=== PATIENT | female | born 1990 | race Caucasian/White ===

== ENCOUNTER → 2021-07-18 14:42 | Outpatient (CLI) | payer OTHER, SELFPAY ==
--- NOTE | 2021-07-18 | DI.US.S_ITS ---
PROCEDURE: US PELVIC COMPLETE INDICATIONS: RIGHT PELVIC PAIN TECHNIQUE: Real-time scanning was performed of the pelvic organs, with image documentation. Additional endovaginal scanning was necessary due to incomplete visualization of the adnexal and endometrial structures by transabdominal scanning. COMPARISON: None. FINDINGS: Uterus: Uterus is anteverted and normal in size at 8.0 x 3.6 x 5.2 cm. The myometrium is homogeneous. The endometrium measures 4 mm combined thickness. No intrauterine mass lesions identified. Ovaries: The right ovary measures 6.9 x 5.1 x 6.7 cm. There is a 6.5 x 5.1 x 6.1 cm right-sided simple ovarian cyst. The left ovary is not visualized on this exam. No adnexal masses are seen. Other: No pathologic free abdominal or pelvic fluid. IMPRESSION: 1. Normal sonographic appearance of the uterus. 2. There is a simple appearing 6.5 cm right ovarian cyst. Right ovary is otherwise unremarkable. Recommend follow-up pelvic ultrasound in 12 months to document stability versus resolution. 3. Left ovary not visualized on this examination. We strive to produce accurate, complete, and clear reports of imaging services. To assist us in improving patient care, this report was composed using standard report templates and voice recognition software. Therefore, it may contain abnormal punctuation, insertions and/or omissions. Occasional wrong-word or sound-alike substitutions may occur. Though we review the report and make efforts to correct it, we do recommend that the report be read carefully in proper context to recognize any text inaccuracies. Dictated by: Cortes Duffy M.D. on 07/18/2021 at 16:56 Approved by: Cortes Duffy M.D. on 07/18/2021 at 16:59
== END ==
PROVIDERS: Referring Provider Internal Medicine; Visit Provider Internal Medicine
DX: N83.291 Other ovarian cyst, right side (principal); R10.31 Right lower quadrant pain
CPT/HCPCS: 76830; 76856

== ENCOUNTER 2022-02-22 14:53 | Emergency (ER) | payer OTHER, SELFPAY ==
[2022-02-22 14:57] VITALS: BP 117/69; PULSE 81; RESP 14; TEMP 36.5; O2SAT 100; BMI 24.3
--- NOTE | 2022-02-22 15:17 | DI.CT.S_ITS ---
PROCEDURE: CT HEAD/BRAIN WO CON INDICATIONS: intractable headache, referred by opthamology TECHNIQUE: Noncontrast 4.5 mm thick angled axial sections acquired from the foramen magnum to the vertex, with coronal and sagittal reformats. For radiation dose reduction, the following was used: automated exposure control, adjustment of mA and/or kV according to patient size. COMPARISON: None. FINDINGS: Image quality: Excellent. CSF spaces: Basal cisterns are patent. No extra-axial fluid collections. Ventricles are normal in size and shape. Brain: No midline shift. No intracranial masses or hemorrhage. Nolen-white matter interface is normal. Skull and face: Calvarium and visualized facial bones are intact, without suspicious lesions. Sinuses: Visualized sinuses and mastoids are clear. IMPRESSION: 1. No acute intracranial process. Dictated by: Jocelin Hardy M.D. on 02/22/2022 at 15:56 Approved by: Jocelin Hardy M.D. on 02/22/2022 at 15:56
--- NOTE | 2022-02-22 15:20 | ED.HA ---
HPI - Headache <VIRGIE Arnold - Last Filed: 02/22/22 19:35> General Chief Complaint: Headache Stated Complaint: Headache/Dizziness, Sent from [facility] Time Seen by Provider: 02/22/22 15:00 Mode of arrival: Ambulatory History of Present Illness HPI Narrative: This is a 31-year-old female with history of headaches and complicated vision, she is on ovarian suppression hormone therapy for ovarian cysts and presents to the emergency department with her father after she was at the [facility] with Dr. Bhandari with complaint of dizziness and headache for the last two weeks. She was examined by Dr. Bhandari and there were not any acutely abnormal findings and she had normal pressures. Her right pupil is larger but this is normal at baseline. She is often ask if her eyes were dilated due to her enlarged pupils. Patient denies any recent trauma, denies any weakness, incontinence, sensation changes, fever, shortness of breath, or chest pain.. She says that she had an allergic reaction just prior to this headache and dizziness starting but otherwise has not had any new changes. Patient complains of blurred vision, right shoulder and neck muscle strain and tenderness to palpation. She endorses nausea without vomiting, denies any sore throat, runny nose, cough, recent illness. Related Data Home Medications Medication Instructions Recorded Confirmed cetirizine 10 mg capsule (Zyrtec) 10 mg PO DAILY PRN 01/28/22 01/28/22 Previous Rx's Medication Instructions Recorded levonorgestrel 0.15 mg-ethinyl 1 tab PO DAILY #112 tabs 01/28/22 estradiol 0.03 mg tablet (Nella (28)) ketorolac 10 mg tablet 10 mg PO Q8H PRN pain #20 tabs 02/22/22 methocarbamol 500 mg tablet 250 - 500 mg PO BID PRN muscle 02/22/22 strain #14 tabs ondansetron 4 mg disintegrating 4 mg PO Q8H PRN nausea and 02/22/22 tablet vomiting #14 tabs Allergies Allergy/AdvReac Type Severity Reaction Status Date / Time Sulfa (Sulfonamide Allergy Verified 02/22/22 14:57 Antibiotics) Review of Systems <VIRGIE Arnold - Last Filed: 02/22/22 19:35> Review of Systems Narrative: General: denies fever, chills Head/Neck: Endorses having a headache, blurred vision, denies any neck pain but endorses right shoulder muscular pain which goes up into her neck on the right. Eyes: Endorses blurred vision, denies any eye pain, states her pupils are dilated at baseline but she does not have any unilateral vision changes Cardio: denies chest pain, palpitations Respiratory: denies shortness of breath, cough GI: denies abdominal pain, nausea, vomiting, or diarrhea : denies dysuria, hematuria or flank pain MSK: denies new joint pain, muscle weakness or swelling Skin: denies rash, itching or wound Neuro: denies numbness, tingling, dizziness Patient History <VIRGIE Arnold - Last Filed: 02/22/22 19:35> Social History Smoking Status: Unknown if ever smoked Smoking Status: Unknown if ever smoked alcohol intake frequency: holidays/special occasions only Substance Use Type: does not use Exam <VIRGIE Arnold - Last Filed: 02/22/22 19:35> Narrative Exam Narrative: Independently reviewed vitals signs and nursing notes. General: cooperative, comfortable, in no acute distress, well groomed, anxious and complaining pain and blurred vision with dizziness. Head: atraumatic, symmetrical facial expressions Neck: supple with full range of motion Eyes: equal round and reactive, pupils are approximately a six, right is slightly greater than left but react and accommodate equally, EOMI, conjunctiva normal without nystagmus, Nose: nares patent, no rhinorrhea Mouth/Throat: moist mucus membranes Cardiovascular: regular rate and rhythm, no peripheral edema, warm extremities Respiratory: normal effort, able to speak in complete sentences without tachypnea MSK: moves all extremities, neurovascularly intact, no weakness, normal tone Skin: brisk capillary refill, no rash, no erythema Neuro: normal speech and cognition, A&O x3 Psych: mental status is grossly normal, congruent mood, normal affect, pleasant and cooperative, alert and oriented x3, interactive appropriately, Initial Vital Signs Initial Vital Signs: Vital Signs Temperature 97.7 F 02/22/22 14:57 Pulse Rate 81 02/22/22 14:57 Respiratory Rate 14 02/22/22 14:57 Blood Pressure 117/69 02/22/22 14:57 Pulse Oximetry 100 02/22/22 14:57 Oxygen Delivery Method 02/22/22 14:57 <Sarah Mccauley DO - Last Filed: 02/23/22 07:51> Initial Vital Signs Initial Vital Signs: Vital Signs Temperature 97.7 F 02/22/22 14:57 Pulse Rate 81 02/22/22 14:57 Respiratory Rate 14 02/22/22 14:57 Blood Pressure 117/69 02/22/22 14:57 Pulse Oximetry 100 02/22/22 14:57 Oxygen Delivery Method 02/22/22 14:57 Course <VIRGIE Arnold - Last Filed: 02/22/22 19:35> Orders Ordered: Discontinued Medications Acetaminophen (Acetaminophen 325 Mg Tablet) 975 mg PO NOW ONE Stop: 02/22/22 15:18 Last Admin: 02/22/22 15:40 Dose: 975 mg Documented By: DIAN Dexamethasone (Dexamethasone 10 Mg/Ml Vial) 10 mg IV NOW ONE Stop: 02/22/22 15:18 Last Admin: 02/22/22 15:41 Dose: 10 mg Documented By: DIAN Diphenhydramine HCl (Diphenhydramine 50 Mg/Ml Vial) 25 mg IV NOW ONE Stop: 02/22/22 15:18 Last Admin: 02/22/22 15:41 Dose: 25 mg Documented By: DIAN Sodium Chloride (Normal Saline 0.9%) 1,000 mls @ 1,000 mls/hr IV BOLUS ONE Stop: 02/22/22 16:16 Last Infusion: 02/22/22 17:09 Dose: 0 mls/hr Documented By: Admin: 02/22/22 15:40 Dose: 1,000 mls/hr Documented By: DIAN Ketorolac Tromethamine (Ketorolac 30 Mg/Ml Vial) 15 mg IV NOW ONE Stop: 02/22/22 15:18 Last Admin: 02/22/22 15:37 Dose: 15 mg Documented By: DIAN Methocarbamol (Methocarbamol 500 Mg Tablet) 250 mg PO NOW ONE Stop: 02/22/22 15:22 Last Admin: 02/22/22 16:32 Dose: Not Given Documented By: DIAN Ondansetron HCl (Ondansetron 4 Mg/2 Ml Inj) 4 mg IV NOW ONE Stop: 02/22/22 15:18 Last Admin: 02/22/22 15:37 Dose: 4 mg Documented By: DIAN Reevaluation(s) Reevaluation #1: Patient was given migraine cocktail including IV fluids with Tylenol, dexamethasone, Benadryl, Toradol, and Zofran, gave her half of a methocarbamol tab for right-sided trapezius strain with thought that this is contributing to her headache. Reevaluation #2: On recheck after her medications 30 minutes later, patient reports that her pain has come down to a 6/10 Reevaluation #3: After 1 hour, patient reports that her pain is now a 2/10, she denies any blurred vision, she states that she feels much better and would like to go home now. Vital Signs Vital signs: Vital Signs - 8 hr 02/22/22 14:57 02/22/22 17:11 Temperature 97.7 F Pulse Rate 81 86 Respiratory Rate 14 12 Blood Pressure 117/69 117/68 Pulse Oximetry 100 100 Oxygen Delivery Method Room Air Room Air <Sarah Mccauley DO - Last Filed: 02/23/22 07:51> Orders Ordered: Discontinued Medications Acetaminophen (Acetaminophen 325 Mg Tablet) 975 mg PO NOW ONE Stop: 02/22/22 15:18 Last Admin: 02/22/22 15:40 Dose: 975 mg Documented By: DIAN Dexamethasone (Dexamethasone 10 Mg/Ml Vial) 10 mg IV NOW ONE Stop: 02/22/22 15:18 Last Admin: 02/22/22 15:41 Dose: 10 mg Documented By: DIAN Diphenhydramine HCl (Diphenhydramine 50 Mg/Ml Vial) 25 mg IV NOW ONE Stop: 02/22/22 15:18 Last Admin: 02/22/22 15:41 Dose: 25 mg Documented By: DIAN Sodium Chloride (Normal Saline 0.9%) 1,000 mls @ 1,000 mls/hr IV BOLUS ONE Stop: 02/22/22 16:16 Last Infusion: 02/22/22 17:09 Dose: 0 mls/hr Documented By: Admin: 02/22/22 15:40 Dose: 1,000 mls/hr Documented By: DIAN Ketorolac Tromethamine (Ketorolac 30 Mg/Ml Vial) 15 mg IV NOW ONE Stop: 02/22/22 15:18 Last Admin: 02/22/22 15:37 Dose: 15 mg Documented By: DIAN Methocarbamol (Methocarbamol 500 Mg Tablet) 250 mg PO NOW ONE Stop: 02/22/22 15:22 Last Admin: 02/22/22 16:32 Dose: Not Given Documented By: DIAN Ondansetron HCl (Ondansetron 4 Mg/2 Ml Inj) 4 mg IV NOW ONE Stop: 02/22/22 15:18 Last Admin: 02/22/22 15:37 Dose: 4 mg Documented By: DIAN Vital Signs Vital signs: Vital Signs - 8 hr 02/22/22 14:57 02/22/22 17:11 Temperature 97.7 F Pulse Rate 81 86 Respiratory Rate 14 12 Blood Pressure 117/69 117/68 Pulse Oximetry 100 100 Oxygen Delivery Method Room Air Room Air MDM - Headache <VIRGIE Arnold - Last Filed: 02/22/22 19:35> Lab Data Result diagrams: 02/22/22 15:49 02/22/22 15:49 Labs: Lab Results 02/22/22 02/22/22 02/22/22 Range/Units 15:49 15:49 15:49 WBC 6.0 (4.5-11.0) X10^3/uL RBC 4.93 (4.0-5.2) X10^6/uL Hgb 15.2 (12.0-16.0) g/dL Hct 44.5 (36-46) % MCV 90.2 (80-100) fL MCH 30.7 (26-34) PG MCHC 34.1 (30-36) % RDW 12.5 (11.6-14.8) % Plt Count 233 (150-400) X10^3/uL Neut % (Auto) 62.8 (50-75) % Lymph % (Auto) 29.8 (25-40) % [place] % (Auto) 5.1 (3-14) % Eos % (Auto) 1.5 L (2-4) % Baso % (Auto) 0.8 (0-2) % Neut # (Auto) 3700 (9627-3542) /uL Lymph # (Auto) 1800 (1854-1484) /uL [place] # (Auto) 300 (0-900) /uL Eos # (Auto) 100 (0-450) /uL Baso # (Auto) 0 (0-100) /uL PT 10.9 (10.1-12.7) SECONDS INR 1.0 (0.9-1.3) Sodium 138 (137-145) mmol/L Potassium TNP Chloride 108 H (98-107) mmol/L Carbon Dioxide 21 L (22-32) mmol/L BUN 7 (7-17) mg/dL Creatinine 0.67 (0.52-1.04) mg/dL Estimated GFR > 60 (>60) mL/min BUN/Creatinine Ratio 10.4 (6-22) Glucose 92 (70-100) mg/dL Calcium 9.0 (8.4-10.2) mg/dL Total Bilirubin 1.3 (0.2-1.3) mg/dL AST TNP ALT 18 (<35) IU/L Alkaline Phosphatase 56 (38-126) U/L Total Protein TNP Albumin 4.9 (3.5-5.0) g/dL Globulin TNP Albumin/Globulin Ratio TNP Procalcitonin < 0.03 (<0.5) ng/mL HCG, Quant 02/22/22 Range/Units 15:49 WBC (4.5-11.0) X10^3/uL RBC (4.0-5.2) X10^6/uL Hgb (12.0-16.0) g/dL Hct (36-46) % MCV (80-100) fL MCH (26-34) PG MCHC (30-36) % RDW (11.6-14.8) % Plt Count (150-400) X10^3/uL Neut % (Auto) (50-75) % Lymph % (Auto) (25-40) % [place] % (Auto) (3-14) % Eos % (Auto) (2-4) % Baso % (Auto) (0-2) % Neut # (Auto) (4708-7111) /uL Lymph # (Auto) (2007-3720) /uL [place] # (Auto) (0-900) /uL Eos # (Auto) (0-450) /uL Baso # (Auto) (0-100) /uL PT (10.1-12.7) SECONDS INR (0.9-1.3) Sodium (137-145) mmol/L Potassium Chloride (98-107) mmol/L Carbon Dioxide (22-32) mmol/L BUN (7-17) mg/dL Creatinine (0.52-1.04) mg/dL Estimated GFR (>60) mL/min BUN/Creatinine Ratio (6-22) Glucose (70-100) mg/dL Calcium (8.4-10.2) mg/dL Total Bilirubin (0.2-1.3) mg/dL AST ALT (<35) IU/L Alkaline Phosphatase (38-126) U/L Total Protein Albumin (3.5-5.0) g/dL Globulin Albumin/Globulin Ratio Procalcitonin (<0.5) ng/mL HCG, Quant TNP Imaging Data CT scan - head: Radiologist's Impression: PROCEDURE:? CT HEAD/BRAIN WO CON ? INDICATIONS:? intractable headache, referred by opthamology ? TECHNIQUE:? Noncontrast 4.5 mm thick angled axial sections acquired from the foramen magnum to the vertex, with coronal and sagittal reformats.? For radiation dose reduction, the following was used:? automated exposure control, adjustment of mA and/or kV according to patient size.? ? COMPARISON:? None. ? FINDINGS:? Image quality:? Excellent.? ? CSF spaces:? Basal cisterns are patent.? No extra-axial fluid collections.? Ventricles are normal in size and shape.? ? Brain:? No midline shift.? No intracranial masses or hemorrhage.? Nolen-white matter interface is normal.? ? Skull and face:? Calvarium and visualized facial bones are intact, without suspicious lesions.? ? Sinuses:? Visualized sinuses and mastoids are clear.? ? IMPRESSION:? ? 1. No acute intracranial process. ? ? Dictated by: Jocelin Hardy M.D. on 02/22/2022 at 15:56 ? ? Approved by: Jocelin Hardy M.D. on 02/22/2022 at 15:56 ? MDM Narrative Medical decision making narrative: This is a 31-year-old female who presents to the emergency department after recommendation from Dr. Bhandari at her ophthalmology appointment for evaluation of her headache which patient reports is having for the last two weeks and having dizziness with blurred vision. Patient has a history of headaches without any formal migraine diagnosis, has a family history of ocular migraines. She has a complicated vision history and is being worked up for glaucoma by Dr. Bhandari and having some testing completed and during her appointment today she had normal pressures, without any acute abnormalities on visual exam by Dr. Bhandari and sent over to the emergency department for her headache symptoms causing blurred vision. Patient was treated with 1 L of IV fluids, IV Toradol, Benadryl, dexamethasone, Zofran and half of a tab of methocarbamol for patient's reported right trapezius strain and tension. She was also given Tylenol and reported that her pain came down to a 2/10 after these treatments. A noncontrast head CT was completed with concern for aneurysmal hemorrhage, tumor, and two weeks of headache without trauma. She did not have any intracranial abnormalities visualized on her head CT today. Her lab work was reassuring and was not significant for any findings. Patient is not , her symptoms improved with migraine cocktail, this is most likely an intractable ocular migraine and I recommended patient follow-up with her primary care provider for a neurology referral. She states that she is had these headaches affecting her vision for many years and has been seeing Dr. Bhandari for her complicated vision history. Patient reports feeling much better after her medications and was discharged home with a prescription of Zofran, methocarbamol, and Toradol as needed for her migraine in the future. Headache considerations include subarachnoid hemorrhage, but unlikely as patient denies sudden onset of pain, not worst of life, or neck pain. Meningitis considered, but thought unlikely given lack of Brudzinski's and Kernig's sign, and without altered mental status or fever. Giant cell arteritis considered, but thought unlikely given lack of unilateral findings, pain in latter-day, or unilateral vision changes. HTN Emergency considered, but thought unlikely given normal vitals, also considered infectious causes, cerebral edema, spontaneous hemorrhage, and vascular occlusion without any focal deficits to suggest this. Other serious diagnoses considered unlikely given lack of red flag findings such as sudden onset, increasing frequency, immunocompromise, systemic signs (fever, chills, stiff neck, or rash), focal neurologic findings, trauma, blood thinners, etc. patient is taking hormone suppression for ovarian cysts and prescribed by Dr. Benoit. Recommend she follow-up with Dr. Benoit regarding this if this is potentially causing increase in her migraine headaches, follow-up with Dr. Hutchinson her PCP ask for neurology referral for follow-up. Patient is appropriate and amenable to discharge home. Vital signs are stable on repeat examination is unremarkable. Patient has been informed of results. Patient has been given strict return to ER precautions for any new or worsening symptoms. Patient understands to follow up closely with outpatient providers as instructed. Patient understands plan and agrees to discharge home. All questions and concerns answered at this time. <Sarah Mccauley, DO - Last Filed: 02/23/22 07:51> Lab Data Labs: Lab Results 02/22/22 02/22/22 02/22/22 Range/Units 15:49 15:49 15:49 WBC 6.0 (4.5-11.0) X10^3/uL RBC 4.93 (4.0-5.2) X10^6/uL Hgb 15.2 (12.0-16.0) g/dL Hct 44.5 (36-46) % MCV 90.2 (80-100) fL MCH 30.7 (26-34) PG MCHC 34.1 (30-36) % RDW 12.5 (11.6-14.8) % Plt Count 233 (150-400) X10^3/uL Neut % (Auto) 62.8 (50-75) % Lymph % (Auto) 29.8 (25-40) % [place] % (Auto) 5.1 (3-14) % Eos % (Auto) 1.5 L (2-4) % Baso % (Auto) 0.8 (0-2) % Neut # (Auto) 3700 (6963-2660) /uL Lymph # (Auto) 1800 (3502-7262) /uL [place] # (Auto) 300 (0-900) /uL Eos # (Auto) 100 (0-450) /uL Baso # (Auto) 0 (0-100) /uL PT 10.9 (10.1-12.7) SECONDS INR 1.0 (0.9-1.3) Sodium 138 (137-145) mmol/L Potassium TNP Chloride 108 H (98-107) mmol/L Carbon Dioxide 21 L (22-32) mmol/L BUN 7 (7-17) mg/dL Creatinine 0.67 (0.52-1.04) mg/dL Estimated GFR > 60 (>60) mL/min BUN/Creatinine Ratio 10.4 (6-22) Glucose 92 (70-100) mg/dL Calcium 9.0 (8.4-10.2) mg/dL Total Bilirubin 1.3 (0.2-1.3) mg/dL AST TNP ALT 18 (<35) IU/L Alkaline Phosphatase 56 (38-126) U/L Total Protein TNP Albumin 4.9 (3.5-5.0) g/dL Globulin TNP Albumin/Globulin Ratio TNP Procalcitonin < 0.03 (<0.5) ng/mL HCG, Quant 02/22/22 Range/Units 15:49 WBC (4.5-11.0) X10^3/uL RBC (4.0-5.2) X10^6/uL Hgb (12.0-16.0) g/dL Hct (36-46) % MCV (80-100) fL MCH (26-34) PG MCHC (30-36) % RDW (11.6-14.8) % Plt Count (150-400) X10^3/uL Neut % (Auto) (50-75) % Lymph % (Auto) (25-40) % [place] % (Auto) (3-14) % Eos % (Auto) (2-4) % Baso % (Auto) (0-2) % Neut # (Auto) (5926-1998) /uL Lymph # (Auto) (8019-5614) /uL [place] # (Auto) (0-900) /uL Eos # (Auto) (0-450) /uL Baso # (Auto) (0-100) /uL PT (10.1-12.7) SECONDS INR (0.9-1.3) Sodium (137-145) mmol/L Potassium Chloride (98-107) mmol/L Carbon Dioxide (22-32) mmol/L BUN (7-17) mg/dL Creatinine (0.52-1.04) mg/dL Estimated GFR (>60) mL/min BUN/Creatinine Ratio (6-22) Glucose (70-100) mg/dL Calcium (8.4-10.2) mg/dL Total Bilirubin (0.2-1.3) mg/dL AST ALT (<35) IU/L Alkaline Phosphatase (38-126) U/L Total Protein Albumin (3.5-5.0) g/dL Globulin Albumin/Globulin Ratio Procalcitonin (<0.5) ng/mL HCG, Quant TNP Discharge Plan Departure Patient Disposition: Home Clinical Impression: Intractable ophthalmic migraine Instructions: Migraine -- Adult, DI for Hormonal and Tension Headaches Activity Restrictions/Additional Instructions: *You have been diagnosed with an intractable migraine without evidence brain tumor or aneurysm, or intracranial hemorrhage. This could be related to your hormone therapy, most likely is related to your vision, but could also be related to tension and stress. It is likely multifactorial as you understand, I am glad that you came in for evaluation, please follow-up with Dr. Bhandari for your vision as a were no concerning findings for acute neurologic emergency today, this can be a difficult problem to have because you can not function normally when you have a migraine. Please follow-up with Dr. Robert pompa and ask him for a referral to Neurology, you can follow-up with Dr. Benoit as needed but I recommend prioritizing Dr. Jossue pompa and following up with Dr. Bhandari. It was a pleasure to meet you, I am sorry for your symptoms, at home, continue to stay hydrated. If you notice blurred vision, increased fatigue or you feel like you might be getting headache, please take Tylenol and ibuprofen, you can take a Zofran to go with this for nausea, it is part of the cocktail. If you have a significant headache, add Benadryl 25 mg. Try and rest and drink plenty of water. If you continue to have symptoms after this, please come to the emergency department for help, I'm sorry for your pain. *What to do: *Please continue to take your regular medications as directed. [x ] New medication prescriptions sent to your pharmacy: [[facility] ] [ ] New medication written as a paper prescription [ ] No new medications given *Please follow up with your primary care provider in 2-3 days, call for an appointment. Let them know you were seen in the Emergency Department and that we asked that you be seen for follow-up. We will electronically transmit a record of today's note if your PCP is in our system *If you do not have a primary care provider please contact [phone] to establish care with one of the [facility] primary care providers. *Return to Emergency Department if you should have any new, worsening or concerning symptoms, such as [fever greater than 101F, chills, worsening pain, persistent vomiting or other bothersome symptoms] Prescriptions: New ondansetron 4 mg tablet,disintegrating 4 mg PO Q8H PRN (Reason: nausea and vomiting) Qty: 14 0RF ketorolac 10 mg tablet 10 mg PO Q8H PRN (Reason: pain) Qty: 20 0RF methocarbamol 500 mg tablet 250 - 500 mg PO BID PRN (Reason: muscle strain) Qty: 14 0RF No Action Zyrtec 10 mg capsule 10 mg PO DAILY PRN levonorgestrel-ethinyl estrad [[place] (28)] 0.15-0.03 mg tablet 1 tab PO DAILY Qty: 112 3RF Rx Instructions: Take one tablet continuously Referrals: Claudine Benoit MD [Physician] - Jhonny Hutchinson MD [Non-Staff] - Visit Report Forms: Patient Portal/API <Sarah Mccauley DO - Last Filed: 02/23/22 07:51> Cosign ED Attending Georgeature Attestation: I was immediately available in the department for consultation. Documentation has been reviewed. I agree with assessment and plan.
[2022-02-22] MEDS: KETOROLAC 30 MG/ML VIAL 15 MG IV (15:37)
[2022-02-22] MEDS: ONDANSETRON 4 MG/2 ML INJ IV (15:37)
[2022-02-22] MEDS: ACETAMINOPHEN 325 MG TABLET 975 MG PO (15:40)
[2022-02-22] MEDS: SODIUM CHLORIDE 0.9% 1,000 ML 1000 ML IV (15:40)
[2022-02-22] MEDS: diphenhydrAMINE 50 MG/ML VIAL 25 MG IV (15:41)
[2022-02-22] MEDS: DEXAMETHASONE 10 MG/ML VIAL IV (15:41)
[2022-02-22 15:59] LABS: Add Manual Diff / Slide Review NO; Basophils Absolute Auto 0 /uL (0-100); Basophils Percent Auto 0.8 % (0-2); Eosinophils Absolute Auto 100 /uL (0-450); Eosinophils Percent Auto 1.5 % (2-4); Hematocrit 44.5 % (36-46); Hemoglobin 15.2 g/dL (12.0-16.0); Lymphocytes Absolute Auto 1800 /uL (1100-4500); Lymphocytes Percent Auto 29.8 % (25-40); Mean Corpuscular HGB Conc 34.1 % (30-36); Mean Corpuscular Hemoglobin 30.7 PG (26-34); Mean Corpuscular Volume 90.2 fL (80-100); Monocytes Absolute Auto 300 /uL (0-900); Monocytes Percent Auto 5.1 % (3-14); Neutrophils Absolute Auto 3700 /uL (1500-7000); Neutrophils Percent Auto 62.8 % (50-75); Platelet Count 233 X10^3/uL (150-400); Red Blood Cell Count 4.93 X10^6/uL (4.0-5.2); Red Cell Distribution Width 12.5 % (11.6-14.8)
[2022-02-22 16:09] LABS: Prothrombin Time 10.9 SECONDS (10.1-12.7)
[2022-02-22 16:13] LABS: Alanine Aminotransferase 18 IU/L (<35); Albumin 4.9 g/dL (3.5-5.0); Alkaline Phosphatase 56 U/L (38-126); BUN Creatinine Ratio 10.4 (6-22); Bilirubin Total 1.3 mg/dL (0.2-1.3); Blood Urea Nitrogen 7 mg/dL (7-17); Carbon Dioxide 21 mmol/L (22-32); Chloride 108 mmol/L (98-107); Estimated Glomerular Filt Rate > 60 mL/min (>60); Glucose 92 mg/dL (70-100); Sodium 138 mmol/L (137-145)
[2022-02-22 16:25] LABS: HEMOLYSIS 197 (0-50)
[2022-02-22 16:30] LABS: Procalcitonin < 0.03 ng/mL (<0.5)
[2022-02-22 17:11] VITALS: BP 117/68; PULSE 86; RESP 12; O2SAT 100
== END 2022-02-22 17:12 | disposition home or self-care (01) ==
PROVIDERS: Emergency Provider Nurse Practitioner Critical Care Medicine
DX: G43.819 Other migraine, intractable, without status migrainosus (principal)
CPT/HCPCS: 36415; 70450; 80053; 84145; 85025; 85610; 96361; 96374; 96375; 99284; J1100; J1200; J1885; J2405

== ENCOUNTER → 2022-11-29 07:55 | Outpatient (CLI) | payer OTHER, SELFPAY ==
[2022-11-29 10:54] LABS: Alanine Aminotransferase 20 IU/L (<35); Albumin 4.4 g/dL (3.5-5.0); Albumin Globulin Ratio 1.5 (1.0-2.8); Alkaline Phosphatase 50 U/L (38-126); Aspartate Aminotransferase 29 IU/L (14-36); BUN Creatinine Ratio 16.4 (6-22); Bilirubin Total 0.8 mg/dL (0.2-1.3); Blood Urea Nitrogen 10 mg/dL (7-17); Calcium 8.9 mg/dL (8.4-10.2); Carbon Dioxide 21 mmol/L (22-32); Chloride 107 mmol/L (98-107); Estimated Glomerular Filt Rate > 60 mL/min (>60); Glucose 71 mg/dL (70-100); HEMOLYSIS 62 (0-50); Potassium 4.3 mmol/L (3.4-5.1); Sodium 138 mmol/L (137-145); Total Protein 7.4 g/dL (6.3-8.2)
[2022-11-29 11:25] LABS: TSH w/ Reflex to FT4 2.52 uIU/mL (0.47-4.68)
[2022-11-29 14:36] LABS: Hematocrit 38.1 % (36-46); Hemoglobin 13.4 g/dL (12.0-16.0); Mean Corpuscular HGB Conc 35.2 % (30-36); Mean Corpuscular Hemoglobin 31.7 PG (26-34); Platelet Count 224 X10^3/uL (150-400); Red Blood Cell Count 4.24 X10^6/uL (4.0-5.2); Red Cell Distribution Width 11.7 % (11.6-14.8)
== END ==
PROVIDERS: PCP Internal Medicine; Referring Provider Internal Medicine; Visit Provider Internal Medicine
DX: R53.83 Other fatigue (principal)
CPT/HCPCS: 36415; 80053; 84443; 85027

== ENCOUNTER → 2023-08-18 09:09 | Outpatient (CLI) | payer OTHER, SELFPAY ==
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
== END ==
LOC: RAD 09:11
PROVIDERS: PCP Internal Medicine; Referring Provider Internal Medicine; Visit Provider Internal Medicine
DX: G95.9 Disease of spinal cord, unspecified (principal)
CPT/HCPCS: 72040

== ENCOUNTER → 2023-08-24 08:15 | Outpatient (CLI) | payer OTHER, SELFPAY ==
--- NOTE | 2023-08-24 08:26 | DI.MRI.S_ITS ---
PROCEDURE: MR CERVICAL SPINE WO CON INDICATIONS: cervical myelopathy TECHNIQUE: Noncontrast sagittal T1 spin echo and T2 fast spin echo, sagittal STIR, foraminal oblique sagittal T2 fast spin echo, and axial gradient echo or T2 fast spin echo through the cervical spine. COMPARISON: [facility], CR, XR CERVICAL SPINE 2V OR 3V, 08/18/2023, 9:36. FINDINGS: Image quality: Excellent. Alignment and Curvature: There is normal bony alignment. Bone Marrow: Marrow demonstrates normal overall signal. Spinal Cord: Visualized spinal cord has normal size and signal. No cerebellar tonsillar herniation. Paraspinous Soft Tissues: No paravertebral masses. Prevertebral soft tissues are normal in thickness. C2-C3: Normal appearance. C3-C4: Mild right facet hypertrophy. No canal stenosis or foraminal stenosis. C4-C5: Mild disc bulge. Minimal indentation of the ventral cord. Mild central canal stenosis. No foraminal stenosis. Mild left facet hypertrophy. C5-C6: Minimal disc bulge. Mild bilateral facet hypertrophy. No canal stenosis or foraminal stenosis. C6-C7: Normal appearance. C7-T1: Normal appearance. IMPRESSION: 1. Mild cervical spondylitic change, with mild multilevel facet arthropathy present. 2. Mild canal stenosis at C4-C5. Dictated by: Ra Stinson M.D. on 08/25/2023 at 8:05 Approved by: Ra Stinson M.D. on 08/25/2023 at 8:09
== END ==
LOC: MRI 08:16
PROVIDERS: PCP Internal Medicine; Referring Provider Internal Medicine; Visit Provider Internal Medicine
DX: M47.812 Spondylosis without myelopathy or radiculopathy, cervical region (principal); M48.02 Spinal stenosis, cervical region; G95.9 Disease of spinal cord, unspecified
CPT/HCPCS: 72141

== ENCOUNTER → 2023-10-23 15:49 | Outpatient (CLI) | payer OTHER, SELFPAY ==
[2023-10-23 17:12] LABS: Hematocrit 40.7 % (36-46); Hemoglobin 14.1 g/dL (12.0-16.0); Mean Corpuscular HGB Conc 34.7 % (30-36); Mean Corpuscular Hemoglobin 31.5 PG (26-34); Mean Corpuscular Volume 90.7 fL (80-100); Platelet Count 236 X10^3/uL (150-400); Red Blood Cell Count 4.48 X10^6/uL (4.0-5.2); Red Cell Distribution Width 11.8 % (11.6-14.8)
[2023-10-23 17:26] LABS: Alanine Aminotransferase 15 IU/L (<35); Albumin 4.1 g/dL (3.5-5.0); Albumin Globulin Ratio 1.3 (1.0-2.8); Alkaline Phosphatase 53 U/L (38-126); Amylase 50 U/L (30-110); Aspartate Aminotransferase 20 IU/L (14-36); Bilirubin Total 0.5 mg/dL (0.2-1.3); Blood Urea Nitrogen 12 mg/dL (7-17); Calcium 9.2 mg/dL (8.4-10.2); Carbon Dioxide 26 mmol/L (22-32); Chloride 107 mmol/L (98-107); Estimated Glomerular Filt Rate > 60 mL/min (>60); Globulin 3.2 g/dL (1.7-4.1); Glucose 88 mg/dL (70-100); HEMOLYSIS < 15 (0-50); Lipase 93 U/L (23-300); Potassium 3.9 mmol/L (3.4-5.1); Sodium 140 mmol/L (137-145); Total Protein 7.3 g/dL (6.3-8.2)
== END ==
PROVIDERS: PCP Internal Medicine; Referring Provider Internal Medicine; Visit Provider Internal Medicine
DX: R10.2 Pelvic and perineal pain (principal); R10.9 Unspecified abdominal pain
CPT/HCPCS: 36415; 80053; 82150; 83690; 85027